=== PATIENT | male | born 1975 | race Caucasian/White ===

== ENCOUNTER 2025-06-12 09:01 | Day surgery (SDC) | payer OTHER ==
[~2025-06-12 09:01] MED LIST: Dexamethasone 4 MG/ML 5 ML MDV ONE; EPINEPHrine 1 MG/ML SDV ONE; Lidocaine 1% 2 ML ONE; Midazolam 1 MG/ML 2 ML SDV ONE; Ondansetron 4 MG/2 ML SDV ONE; Ropivacaine 0.5% 5 MG/ML 30 ML SDV ONE; Sodium Chloride 0.9% 10 ML Syringe FLUSH PRN; Sodium Chloride 0.9% 10 ML Syringe FLUSH SCH; dexmedeTOMIDine HCl 200 MCG/2 ML SDV ONE; fentaNYL 100 MCG/2 ML SDV ONE; propofoL 500 MG/50 ML 50 ML ONE
[2025-06-12] MEDS ORDERED: Lactated Ringers 1,000 ML IV ONE (09:02)
[2025-06-12] MEDS: Lactated Ringers 1,000 ML IV SCH (09:30)
[2025-06-12] MEDS ORDERED: Propofol 200 MG/20 ML SDV ONE ×2 (09:36→11:09)
[2025-06-12] MEDS ORDERED: Ketorolac 30 MG/ML SDV ONE (11:29)
[2025-06-12] MEDS ORDERED: fentaNYL 100 MCG/2 ML SDV IVPUSH PRN (11:44)
[2025-06-12] MEDS ORDERED: Ondansetron 4 MG/2 ML SDV IVPUSH PRN (11:44)
== END 2025-06-12 13:35 | disposition home or self-care (01) ==
LOC: JD.SDS 09:01
PROVIDERS: ATTEND Orthopaedic Surgery
DX: M75.22 Bicipital tendinitis, left shoulder (principal); S43.432A Superior glenoid labrum lesion of left shoulder, initial encounter; M94.212 Chondromalacia, left shoulder; E11.9 Type 2 diabetes mellitus without complications; E78.2 Mixed hyperlipidemia; F17.290 Nicotine dependence, other tobacco product, uncomplicated; Z79.84 Long term (current) use of oral hypoglycemic drugs; Z79.899 Other long term (current) drug therapy
CPT/HCPCS: 29807; 29822; 64415; 87641; J0169; J0665; J0690; J1100; J1885; J2003; J2250; J2405; J2704; J2795; J3010; J7120; 01630; C1713; J3490